=== PATIENT | female | born 1970 | race Caucasian/White ===

== ENCOUNTER → 2021-11-01 | Day surgery (SDC) | payer OTHER ==
[~2021-11-01] MED LIST: COZAAR25 MG PO; LEXAPRO TAB 1010 MG PO; VITAMIN D3125 MCG PO
== END | disposition home or self-care (01) ==
LOC: OR 07:10
DX: Z12.11 Encounter for screening for malignant neoplasm of colon (principal); D12.0 Benign neoplasm of cecum; K31.9 Disease of stomach and duodenum, unspecified; K21.00 Gastro-esophageal reflux disease with esophagitis, without bleeding; R10.32 Left lower quadrant pain; K64.1 Second degree hemorrhoids; I10 Essential (primary) hypertension; E66.3 Overweight; F41.9 Anxiety disorder, unspecified; G25.81 Restless legs syndrome; E83.52 Hypercalcemia; Z68.29 Body mass index [BMI] 29.0-29.9, adult; Z79.899 Other long term (current) drug therapy; Z98.51 Tubal ligation status; Z80.1 Family history of malignant neoplasm of trachea, bronchus and lung
CPT/HCPCS: J2704; J7040

== ENCOUNTER → 2022-02-14 | Outpatient (CLI) | payer OTHER | LOC: EXRD 09:54 | DX: R10.2 Pelvic and perineal pain (principal); R10.32 Left lower quadrant pain; K76.0 Fatty (change of) liver, not elsewhere classified | CPT/HCPCS: 76700 ==

== ENCOUNTER → 2022-04-25 | Outpatient (CLI) | payer OTHER | LOC: CT 12:17 | DX: R10.9 Unspecified abdominal pain (principal); R19.00 Intra-abdominal and pelvic swelling, mass and lump, unspecified site; Z01.812 Encounter for preprocedural laboratory examination | CPT/HCPCS: 36415; 82565; 84520; Q9967 ==